=== PATIENT | male | born 1955 | race Caucasian/White ===

== ENCOUNTER 2019-02-12 16:30 | Emergency (ER) | payer BC ==
[2019-02-12] MEDS ORDERED: Ketorolac INJ* 15 MG/ML 1 ML VIAL IV ONE (19:31)
[2019-02-12] MEDS ORDERED: NS 0.9% 1000 ML** 1,000 ML IV ONE (19:31)
[2019-02-12] MEDS ORDERED: Ondansetron INJ* 2 MG/ML VIAL IV ONE (19:31)
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
[2019-02-12 19:38] LABS: ABS Basophils 0.1 10^3/ul (0-0.2); ABS Eosinophils 0.1 10^3/ul (0-0.6); ABS Lymphocytes 0.9 10^3/ul (1.0-4.8); ABS Neutrophils 11.3 10^3/ul (1.5-7.7); Eosinophil % 0.6 %; Hematocrit 44 % (42-52); Hemoglobin 15.1 g/dL (14.0-18.0); Lymphocyte % 6.6 %; Mean Corpuscular HGB Conc 35 g/dL (31-36); Mean Corpuscular Hemoglobin 31 pg (27-31); Mean Corpuscular Volume 90 fL (80-94); Mean Platelet Volume 8.9 fL (7.4-10.4); Platelet Count 223 10^3/uL (150-450); Red Blood Count 4.87 10^6 /uL (4.18-5.48); Red Cell Distribution Width 13 % (10-15); White Blood Count 13.3 10^3/uL (3.5-10.8)
[2019-02-12 19:46] LABS: Albumin 4.4 g/dL (3.2-5.2); Calcium 9.6 mg/dL (8.6-10.3); Potassium 3.6 mmol/L (3.5-5.0); Total Bilirubin 1.1 mg/dL (0.2-1.0)
[2019-02-12 19:52] LABS: Albumin/Globulin Ratio 1.5 (1-3); BUN/Creatinine Ratio 9.4 (8-20); EGFR African American 53.5 (>60); EGFR Non-African American 44.2 (>60); Total Protein 7.4 g/dL (6.4-8.9)
[2019-02-12 19:57] LABS: Urine Appearance Clear; Urine Bacteria Absent (Absent); Urine Bilirubin Negative (Negative); Urine Blood 2+ (Negative); Urine Color Yellow; Urine Glucose Negative (Negative); Urine Ketones Trace (Negative); Urine Nitrite Negative (Negative); Urine Protein Negative (Negative); Urine Red Blood Cell 2+(6-10/hpf) (Absent); Urine Urobilinogen Negative (Negative); Urine White Blood Cell Trace(0-5/hpf) (Absent)
[2019-02-12] MEDS ORDERED: Tamsulosin CAP* 0.4 MG PO ONE (21:43)
[2019-02-12 21:54] VITALS: BP 135/82
[2019-02-13] MEDS ORDERED: Multivitamins/Minerals TAB PO SCH (09:00)
[2019-02-13] MEDS ORDERED: Cholecalciferol TAB* 1000 UNITS PO SCH (09:00)
[2019-02-13] MEDS ORDERED: Pantoprazole TAB * 40 MG TAB PO SCH (09:00)
== END 2019-02-12 22:01 | disposition home or self-care (01) ==
LOC: ED 16:31
DX: N20.0 Calculus of kidney (principal); R10.84 Generalized abdominal pain; Z79.899 Other long term (current) drug therapy; Z87.442 Personal history of urinary calculi
CPT/HCPCS: 36415; 74176; 80053; 81003; 81015; 83605; 83690; 85025; 87086; 96361; 96374; 96375; 99283; J1885; J2405

== ENCOUNTER → 2019-02-15 07:02 | Day surgery (SDC) | payer BC ==
--- NOTE | 2019-02-14 16:32 | HP ---
CC: Dr. Quynh Phelan DATE OF ADMISSION: 02/15/2019. AGE: 63-year-old male. ADMITTING DIAGNOSES: 1. Obstructing calculus left proximal ureter. 2. Left renal calculi. 3. Left hydronephrosis. PLANNED PROCEDURE: Left retrograde and left stent insertion (to be followed in the near future by sh ockwave lithotripsy). SURGEON: Dr. Saroj Garces. HISTORY OF PRESENT ILLNESS: Mahin Masters is a 63-year-old gentleman with a history of recurrent jon al calculi. He has had episodic left flank pain for the last nine to ten days which progressively got worse, even tually requiring a trip to the emergency room. This revealed calculus which to my visualization adelina ured at least 7 to 8 mm (recorded as 5 mm) in the proximal left ureter with left hydronephrosis and a dditional left renal calculi. He was seen in my office on February 14 and was noted to have persist ent left hydronephrosis with absent left ureteral jet suggesting a complete obstruction and also note d to have increased renal cortical echogenicity. I also noted that his creatinine had been elevated and all of these findings consistent with a complete left ureteral obstruction secondary to a proxima l calculus necessitated the placement of a left stent on a semiurgent basis to be followed in the kevin r future by lithotripsy. PAST MEDICAL HISTORY: Significant for renal calculi on two prior occasions (more than 30 years ago). PAST SURGICAL HISTORY: Significant for bilateral inguinal hernia repair. MEDICATIONS ON ADMISSION: None. ALLERGIES: No known drug allergies. FAMILY HISTORY: Negative for stones. SMOKING HISTORY: He is a nonsmoker. REVIEW OF SYSTEMS: He is otherwise in excellent health. There is no history of diabetes mellitus or any other major systemic illness. He denies any chest pain or shortness of breath. PHYSICAL EXAMINATION GENERAL: Pleasant, healthy-appearing, middle-aged gentleman. VITAL SIGNS: Blood pressure 150/88, pulse 66 per minute and regular, temperature 97.6, oxygen satura tion 97 percent on room air. CARDIOVASCULAR: Regular rate and rhythm. S1, S2. LUNGS: Clear bilaterally. ABDOMEN: Soft with left flank tenderness. IMPRESSION: Onhon-byfkj-cjdp-old gentleman with complete obstruction of left ureter secondary to a calculus in the left proximal ureter with additional left renal calculi. PLAN: Planned procedure is left retrograde and left stent insertion to be followed in the near futur e by lithotripsy. [id number]/[facility] #: [id number]
[~2019-02-15 07:02] MED LIST: Acetaminophen TAB* 325 MG PO PRN; Dexamethasone IV* 4 MG/ML 1 ML (4 MG) ONE; DiMENhydriNATE IV* 50 MG/ML VIAL IV PUSH PRN; Gentamicin ADULT (*) 160 MG in NS 0.9% 100 ML* 100 ML IVPB ONE; Iohexol 180 (CONTRAST) 10 ML SDV IV ONE; Ketorolac INJ* 30 MG/ML 1 ML VIAL ONE; Midazolam* 1 MG/ML 5 ML VIAL (5 MG) ONE; Ondansetron INJ* 2 MG/ML VIAL ONE; Propofol* 10 MG/ML 20 ML BTL ONE; Tamsulosin CAP* 0.4 MG ONE; cefTRIAXone(*) 2 GM ADDV.VIAL IVPB ONE; fentaNYL* 50 MCG/ML 2 ML VIAL (100 MCG VIAL) ONE; oxyCODONE TAB* 5 MG TAB PO PRN
[2019-02-15 10:24] VITALS: BP 156/97
--- NOTE | 2019-02-15 10:56 | OP ---
CC: Dr. Quynh Phelan * DATE OF OPERATION: 02/15/19 - [facility] DATE OF : 55. SURGEON: Saroj Garces MD. ANESTHESIOLOGIST: Dr. Vazquez. ANESTHESIA: General. PRE-OP DIAGNOSES: 1. Calculus, left proximal ureter. 2. Left renal calculi. 3. Left hydronephrosis. POST-OP DIAGNOSES: 1. Calculus, left proximal ureter. 2. Left renal calculi. 3. Left hydronephrosis. OPERATIVE PROCEDURE: Cystoscopy, left retrograde pyelogram, left ureteral calculus manipulation, and left stent insertion. COMPLICATIONS: None. STENT USED: 6-Somali stent, left ureter. FINDINGS: High grade obstruction secondary to calculus left proximal ureter causing moderate to severe left hydronephrosis. INDICATIONS: Mahin Masters is a 63-year-old gentleman who was evaluated for complete obstruction of the ureters secondary to a calculus in the left proximal ureter. He is being brought in for urgent left stent insertion to be followed at some point in the near future by lithotripsy. DESCRIPTION OF PROCEDURE: After induction of general anesthesia, the patient was placed in dorsal lithotomy position. Sequential compression devices were in place and functioning. Initial cystoscopy revealed a normal appearing urethra , moderately enlarged prostate with an asymmetric enlargement with the right lobe getting larger than the left lobe. The bladder was examined and appeared normal. There was clear efflux noted from the right orifice. There was no efflux noted from the left orifice suggesting a complete obstruction. A guidewire was introduced into the left ureter; and, once it was manipulated beyond the point of obstruction, there was significant drainage of cloudy urine noted from the left kidney. The calculus was carefully manipulated proximally and then a 6-Somali stent was introduced and positioned under fluoroscopy with good proximal and distal positioning obtained. The bladder was emptied. The patient tolerated the procedure satisfactorily and was transferred back to the recovery area in stable condition. [id number]/[facility] #: [id number] [facility]
== END | disposition home or self-care (01) ==
LOC: OR 07:02
PROVIDERS: ATTEND Urology
DX: N13.2 Hydronephrosis with renal and ureteral calculous obstruction (principal); Z87.442 Personal history of urinary calculi; F41.8 Other specified anxiety disorders
CPT/HCPCS: 74420; C1876; J0696; J1100; J1580; J1885; J2250; J2405; J2704; J3010

== ENCOUNTER 2019-03-03 12:52 | Day surgery (SDC) | payer BC ==
[~2019-03-03 12:52] MED LIST changes: -Acetaminophen TAB* 325 MG PO PRN; +Buffered Lidocaine 1% SYRIN* 1 ML/SYRINGE INTRADERM ONE; +Dexamethasone IV* 4 MG/ML 1 ML (4 MG) IV SLOW PU ONE; -Dexamethasone IV* 4 MG/ML 1 ML (4 MG) ONE; -DiMENhydriNATE IV* 50 MG/ML VIAL IV PUSH PRN; +Famotidine IV* 10 MG/ML 2 ML (20 mg) IV ONE; -Gentamicin ADULT (*) 160 MG in NS 0.9% 100 ML* 100 ML IVPB ONE; -Iohexol 180 (CONTRAST) 10 ML SDV IV ONE; -Ketorolac INJ* 30 MG/ML 1 ML VIAL ONE; +Lactated Ringers 1000 ML Bag* 1,000 ML IV SCH; -Midazolam* 1 MG/ML 5 ML VIAL (5 MG) ONE; -Ondansetron INJ* 2 MG/ML VIAL ONE; -Propofol* 10 MG/ML 20 ML BTL ONE; -Tamsulosin CAP* 0.4 MG ONE; -cefTRIAXone(*) 2 GM ADDV.VIAL IVPB ONE; -fentaNYL* 50 MCG/ML 2 ML VIAL (100 MCG VIAL) ONE; -oxyCODONE TAB* 5 MG TAB PO PRN
[2019-03-03] MEDS ORDERED: Dexamethasone IV* 4 MG/ML 1 ML (4 MG) ONE (14:54)
[2019-03-03] MEDS ORDERED: Famotidine IV* 10 MG/ML 2 ML (20 mg) ONE (14:54)
[2019-03-03] MEDS ORDERED: cefTRIAXone(*) 2 GM ADDV.VIAL IVPB ONE (14:54)
[2019-03-03] MEDS ORDERED: Ondansetron INJ* 2 MG/ML VIAL ONE (15:26)
[2019-03-03] MEDS ORDERED: Propofol* 10 MG/ML 20 ML BTL ONE (15:26)
[2019-03-03] MEDS ORDERED: Lidocaine 2% PF * 5 ML VIAL ONE (15:26)
[2019-03-03] MEDS ORDERED: fentaNYL* 50 MCG/ML 2 ML VIAL (100 MCG VIAL) ONE (15:37)
[2019-03-03] MEDS ORDERED: Midazolam* 1 MG/ML 5 ML VIAL (5 MG) ONE (15:37)
[2019-03-03] MEDS ORDERED: Scopolamine 1.5 mg* PATCH TRANSDERM PRN (16:02)
[2019-03-03] MEDS ORDERED: Ondansetron INJ* 2 MG/ML VIAL IV PRN (16:02)
[2019-03-03] MEDS ORDERED: Naloxone* 0.4 MG/ML 1 ML VIAL IV PRN (16:02)
[2019-03-03] MEDS ORDERED: oxyCODONE/Acetamin 5/325 MG* TAB PO PRN (16:02)
[2019-03-03] MEDS ORDERED: DiMENhydriNATE IV* 50 MG/ML VIAL IV PUSH PRN (16:02)
[2019-03-03] MEDS ORDERED: fentaNYL* 50 MCG/ML 2 ML VIAL (100 MCG VIAL) IV PRN (16:02)
[2019-03-03] MEDS ORDERED: Furosemide IV* 10 MG/ML 2 ML VIAL (20 MG) ONE (17:01)
[2019-03-03 17:32] VITALS: BP 137/93
--- NOTE | 2019-03-04 01:29 | OP ---
CC: Dr. Quynh Phelan * DATE OF OPERATION: 03/03/19 - [facility] DATE OF : 55 SURGEON: Saroj Garces MD. ANESTHESIOLOGIST: Dr. Cook. ANESTHESIA: General. PRE-OP DIAGNOSIS: Left renal calculi. POST-OP DIAGNOSIS: Left renal calculi. OPERATIVE PROCEDURE: Shockwave lithotripsy of left renal calculi. COMPLICATIONS: None. INDICATIONS: Mahin Masters is a 63-year-old gentleman who had undergone urgent left stent insertion because of an obstructing calculus in the left proximal ureter. At that time, he was also noted to have additional left renal calculi. OPERATIVE FINDINGS: Left renal calculi. POSTOPERATIVE CONDITION: Stable. DESCRIPTION OF PROCEDURE: After induction of general anesthesia, the patient was placed on the lithotripsy table in the supine position. The previously obstructing calculus was now in the lower pole and there was another smaller calculus adjacent to it. Shockwave lithotripsy was commenced at a rate of 90 shocks per minute. After the initial 300 shocks, there was a brief pause in lithotripsy for several minutes in an effort to minimize any potential trauma to the kidney; 1800 shocks were delivered to this cluster of calculi. Next, fluoroscopy was used to localize the calculus, which was in the upper pole of the left kidney and this was targeted with shockwave lithotripsy at a rate of 60 shocks per minute. A total of 600 shocks were used for this calculus and thus, a total of 2400 shocks were administered through the procedure. Good fragmentation was observed of both sets of stones, and the patient tolerated the procedure satisfactorily, and was transferred back to the recovery area in stable condition. The plan is to see him in the office in 7 to 10 days for stent removal. [id number]/[facility] #: [id number] [facility]
== END 2019-03-03 18:35 | disposition home or self-care (01) ==
LOC: OR 12:52
PROVIDERS: ATTEND Urology
DX: N20.0 Calculus of kidney (principal)
CPT/HCPCS: 74018; J0696; J1100; J1940; J2250; J2405; J2704; J3010